=== PATIENT | male | born 1950 | race Caucasian/White ===

== ENCOUNTER → 2017-11-25 | Outpatient (CLI) | payer MEDICARE | END | disposition home or self-care (01) | LOC: RAD 13:38 | PROVIDERS: ATTEND Physical Medicine & Rehabilitation | DX: I65.23 Occlusion and stenosis of bilateral carotid arteries (principal); M48.02 Spinal stenosis, cervical region; M50.21 Other cervical disc displacement, high cervical region; R60.9 Edema, unspecified | CPT/HCPCS: 36415; 70549; 72156; 82565; 93880 ==